=== PATIENT | male | born 1970 | race Two or more races ===

== ENCOUNTER → 2018-09-20 | Day surgery (SDC) | payer OTHER ==
[2018-09-20] VITALS (9 sets, daily range): BP systolic 121–143; BP diastolic 75–92
[~2018-09-20] VITALS: Ht 177.8 cm; Wt 87.1 kg
[~2018-09-20] MED LIST: Atropine Sulfate 0.4mg/ml inj IVP PRN; Bupivacaine w/Epi 0.25% 30ml Vial INJ ONE; Dexamethasone 4mg/ml vial ONE; DiphenhydrAMINE 50mg/ml Inj IVP PRN; EPINEPHrine 1mg/1ml Amp ONE; HYDROcodone/Acetamin 7.5/325 tab ORAL PRN; Hydromorphone 0.5mg/0.5ml inj IVP PRN; IBUPROFEN800 MG ORAL; Ketorolac 30mg Inj IV PRN; LORazepam Inj 2mg/ml 1ml IV PRN; LR 1000ml 1,000 ML IVLG SCH; LR 1000ml ONE; Lidocaine 1% MPF 10mg/ml 5ml ONE; Meperidine 50mg/ml Inj(FOR RIGORS ONLY) IVP PRN; Metoclopramide 10mg/2ml Inj IVP PRN; Midazolam 2mg/2ml Inj IVP PRN; NS Irrig 4000ml IRRIG ONE; Norco 5mg/325mg tab ORAL PRN; Propofol 200mg/20ml IV ONE; Ropivacaine 5mg/ml Vial 30ml INJ ONE; Sodium Chloride 10ml vial INJ ONE; Sterile Water Irrig 1000ml IRRIG ONE; ceFAZolin 1gm IVPB IVPB ONE; celeBREX 200mg Cap **SURGERY PATIENTS ONLY ORAL ONE; fentaNYL 100 mcg/2 mL IV PRN; oxyCODONE HCL/Acetaminophen 5/325mg ORAL PRN; oxyCONTIN 20mg tab ORAL ONE
--- NOTE | 2018-09-20 10:33 | Anethesia Preoperative Eval ---
Anesthesia Pre-op PMH/ROS General Date of Evaluation: Sep 20, 2018 Time of Evaluation: 11:11 Anesthesiologist: Rivera ASA Score: ASA 2 Mallampati Score Class I : Soft palate, uvula, fauces, pillars visible Class II: Soft palate, uvula, fauces visible Class III: Soft palate, base of uvula visible Class IV: Only hard plate visible Mallampati Classification: Class I Surgeon: Alberto Diagnosis: R Shoulder Pain Surgical Procedure: R Shoulder Arthroscopy Anesthesia History: none Family History: no anesthesia problems Allergies: Coded Allergies: No Known Allergies (Unverified , 09/19/18) Medications: see eMAR Patient NPO?: Yes Past Medical History Cardiovascular: Reports: other - HL PSxH Narrative: R Knee Arthroscopy Anesthesia Pre-op Phys. Exam Physician Exam Constitutional: NAD Neurologic: CN 2-12 intact Cardiovascular: RRR Respiratory: CTA Gastrointestinal: S/NT/ND Airway Exam Mallampati Score: Class I MO: full ROM: full Teeth: missing, intact Anesthesia Pre-op A/P Risk Assessment & Plan Assessment: ASA 2 Plan: GA, SED, Suprclavicular Block Status Change Before Surgery: No Pre-Antibiotics Dru Gram Ancef IV Given Within 1 Hr of Incision: Yes Time Given: 11:41 Jean Stafford MD Sep 20, 2018 10:33
--- NOTE | 2018-09-20 10:55 | Immediate Post-Op Evaluation ---
Immediate Post-Op Evalulation Immediate Post-Op Evalulation Procedure: R Shoulder Arthroscopy Date of Evaluation: Sep 20, 2018 Time of Evaluation: 13:39 IV Fluids: 600 LR Blood Products: 0 Estimated Blood Loss: 25 Urinary Output: 0 Blood Pressure Systolic: 143 Blood Pressure Diastolic: 84 Pulse Rate: 80 Respiratory Rate: 16 O2 Sat by Pulse Oximetry: 99 Temperature (Fahrenheit): 97.5 Pain Score (1-10): 1 Nausea: No Vomiting: No Complications 0 Patient Status: awake, reacts, patent, none Hydration Status: adequate Dru Gram Ancef IV Given Within 1 Hr of Incision: Yes Time Given: 11:41 Jean Stafford MD Sep 20, 2018 10:55
--- NOTE | 2018-09-20 10:56 | 48 Hour Post Anesthesia Eval ---
Post Anesthesia Evaluation Procedure: R Shoulder Arthroscopy Date of Evaluation: Sep 20, 2018 Time of Evaluation: 15:47 Blood Pressure Systolic: 142 0: 91 Pulse Rate: 67 Respiratory Rate: 18 Temperature (Fahrenheit): 98.2 O2 Sat by Pulse Oximetry: 97 Airway: patent Nausea: No Vomiting: No Pain Intensity: 1 Hydration Status: adequate Cardiopulmonary Status: Stable Mental Status/LOC: patient returned to baseline Follow-up Care/Observations: 0 Post-Anesthesia Complications: 0 Follow-up care needed: ready to discharge Jean Stafford MD Sep 20, 2018 10:56
--- NOTE | 2018-09-20 11:42 | Pre-Procedure Note/Attestation ---
Pre-Procedure Note/Attestation Complete Prior to Procedure Planned Procedure: right Procedure Narrative: shoulder impingement, rc repair, sad Indications for Procedure Pre-Operative Diagnosis: right shoulder impingement, rct Attestation I attest that I discussed the nature of the procedure; its benefits; risks and complications; and alternatives (and the risks and benefits of such alternatives ), prior to the procedure, with the patient (or the patient's legal community engagement representative). I attest that, if there was a reasonable possibility of needing a blood transfusion, the patient (or the patient's legal community engagement representative) was given the [facility] standardized written summary, pursuant to the Jarod Eric Blood Safety Act ([place] Health and Safety Code # 1645, as amended). I attest that I re-evaluated the patient just prior to the surgery and that there has been no change in the patient's H&P, except as documented below: Dante Dominguez MD Sep 20, 2018 11:42
--- NOTE | 2018-09-20 11:43 | Operative Note - PDOC ---
Operative Note Operative Note Pre-op Diagnosis: right shoulder impingement, rct Procedure: see op report Post-op Diagnosis: same as pre-op plus Operative Findings: consistent w/pre-op dx studies Anesthesia: regional Specimen: none Complications: none Condition: stable Estimated Blood Loss: none Implant(s) used?: No Dante Dominguez MD Sep 20, 2018 11:43
--- NOTE | 2018-09-20 21:30 | Operative Note - Dictated ---
DATE OF OPERATION: 09/20/2018 PREOPERATIVE DIAGNOSES: 1. Right shoulder impingement syndrome. 2. Right shoulder rotator cuff tear. POSTOPERATIVE DIAGNOSES: 1. Right shoulder impingement syndrome. 2. Right shoulder rotator cuff tear. PROCEDURES: 1. Right shoulder arthroscopy, extensive intra-articular debridement. 2. Right shoulder arthroscopic rotator cuff repair. 3. Right shoulder subacromial decompression with bursectomy. SURGEON: Dante Dominguez M.D. ANESTHESIA: Interscalene with general. INDICATION FOR PROCEDURE: The patient is a pleasant gentleman, who has had progressive shoulder pain. He had a MRI, which showed a full-thickness tear. He failed conservative treatment and elected to undergo right shoulder arthroscopy rotator cuff repair. Risks, limitations, expectations, and complications of the procedure were discussed in detail. All questions addressed. DESCRIPTION OF PROCEDURE: After informed consent was obtained, the patient was brought to the operating room. The patient was placed under interscalene general anesthesia. The patient was then carefully placed in the beach-chair position. Right shoulder was prepped and draped in a sterile manner. Time-out was performed. Posterolateral stab incision was then made. Trocar was introduced into the glenohumeral joint. The anterior labrum was intact along with the biceps tendon. The undersurface of the rotator cuff was completely torn. There was no loose bodies in the shoulder. Camera was repositioned in the subacromial space and complete bursectomy was performed. Acromioplasty was started from lateral to medial and completed from posterior to anterior. Once that was completed along with the complete bursectomy, four anchors were placed to repair the rotator cuff. Once that was done, the shoulder was taken through range of motion and moves as a unit. At this point, the instruments were removed. Portal sites were closed with 3-0 Monocryl sutures. Steri-Strips and a sterile dressing were applied. The patient was awoken and taken to recovery room with stable vital signs. ESTIMATED BLOOD LOSS: Minimal. COMPLICATIONS: None. SPECIMENS: None. IMPLANTS: Include 4 Biomet anchors. Dante Dominguez M.D. DR: SCOT JOB#: [id number] CC:
== END | disposition home or self-care (01) ==
LOC: SUR 09:58
DX: M24.811 Other specific joint derangements of right shoulder, not elsewhere classified (principal); M75.101 Unspecified rotator cuff tear or rupture of right shoulder, not specified as traumatic; I10 Essential (primary) hypertension; E78.5 Hyperlipidemia, unspecified; Z87.891 Personal history of nicotine dependence
CPT/HCPCS: 29823; 29826; 29827; C1713; J0171; J0690; J1100; J1170; J2250; J2405; J2704; J2795; 94003; 94150